=== PATIENT | female | born 1960 | race Two or more races ===

== ENCOUNTER → 2017-07-18 13:23 | Outpatient (CLI) | payer OTHER | END | disposition home or self-care (01) | LOC: LAB 13:23 | DX: J11.1 Influenza due to unidentified influenza virus with other respiratory manifestations (principal) ==

== ENCOUNTER → 2017-07-18 | Outpatient (CLI) | payer OTHER ==
[~2017-07-18] VITALS: Ht 152.4 cm; Wt 107.0 kg
[~2017-07-18] MED LIST: ALEVE220 M1 PO; ALLERGY EYE5 ML OP; BRONCOTRON-D S473 ML PO; CEFADROXIL500 MG PO; CIPRO500 MG; COZAAR100 MG; COZAAR100 MG PO; COZAAR25 MG PO; DIFLUCAN 100 MG PO; FLUCONAZOLE150 MG PO; GILTUSS TR TAB1 EACH PO; GLIPIZIDE10 MG; GLIPIZIDE10 MG PO; GLIPIZIDE5 MG/BOTT1 PO; GLUCOPHAGE XR500 MG PO; GLUCOPHAGE XR750 MG; GLUCOTROL10 MG; GLUCOTROL10 MG PO; LANTUS100 U/ML; LANTUS100 U/ML SC; LASIX20 MG PO; LEVAQUIN750 MG PO; LOTRISONE CREAM45 GM TP; METFORMIN HCL1000 M1 PO; NAPR500T14 PO; SYNTHROID175 MCG; SYNTHROID175 MCG PO; TOBREX5 ML OP; ULTRACET PO; ZOCOR20 MG; ZOCOR20 MG PO; ZYRTEC10 MG PO
== END | disposition home or self-care (01) ==
LOC: PPHC 10:10
DX: R09.81 Nasal congestion (principal); J11.1 Influenza due to unidentified influenza virus with other respiratory manifestations

== ENCOUNTER → 2017-10-01 16:41 | Outpatient (CLI) | payer OTHER | END | disposition home or self-care (01) | LOC: LAB 16:41 | DX: N39.0 Urinary tract infection, site not specified (principal); R82.79 Other abnormal findings on microbiological examination of urine ==

== ENCOUNTER → 2017-10-23 | Emergency (ER) | payer OTHER ==
[~2017-10-23] VITALS: Ht 162.6 cm; Wt 104.3 kg
== END | disposition home or self-care (01) ==
LOC: ER 08:02
DX: H10.89 Other conjunctivitis (principal)

== ENCOUNTER → 2017-10-30 06:06 | Outpatient (CLI) | payer OTHER | END | disposition home or self-care (01) | LOC: LAB 06:06 | DX: E78.5 Hyperlipidemia, unspecified (principal); E11.9 Type 2 diabetes mellitus without complications; E03.9 Hypothyroidism, unspecified; I10 Essential (primary) hypertension ==

== ENCOUNTER 2017-12-24 10:40 | Outpatient (CLI) | payer OTHER | END 2017-12-25 16:04 | disposition home or self-care (01) | LOC: LAB 10:40 | DX: Z11.3 Encounter for screening for infections with a predominantly sexual mode of transmission (principal) ==

== ENCOUNTER 2018-05-11 06:20 | Outpatient (CLI) | payer OTHER | END 2018-05-11 06:28 | disposition home or self-care (01) | LOC: LAB 06:20 | DX: E11.65 Type 2 diabetes mellitus with hyperglycemia (principal); E03.8 Other specified hypothyroidism; E78.2 Mixed hyperlipidemia ==

== ENCOUNTER 2018-05-18 07:44 | Emergency (ER) | payer OTHER ==
[~2018-05-18] VITALS: Ht 162.6 cm; Wt 106.6 kg
[2018-05-18] MEDS ORDERED: ZITHROMAX TRI-500 MG PO (10:44)
[2018-05-18] MEDS ORDERED: TUSNEL DIABETI118 ML PO (10:44)
== END 2018-05-18 10:47 | disposition home or self-care (01) ==
LOC: ER 07:44
DX: B34.9 Viral infection, unspecified (principal)

== ENCOUNTER 2018-08-24 07:18 | Outpatient (CLI) | payer OTHER ==
[~2018-08-24 07:18] MED LIST changes: +TUSNEL DIABETI118 ML PO; +ZITHROMAX TRI-500 MG PO
== END 2018-08-24 13:50 | disposition home or self-care (01) ==
LOC: LAB 07:18
DX: E03.8 Other specified hypothyroidism (principal); E11.65 Type 2 diabetes mellitus with hyperglycemia; E78.00 Pure hypercholesterolemia, unspecified

== ENCOUNTER 2018-09-03 11:05 | Emergency (ER) | payer OTHER ==
[~2018-09-03] VITALS: Ht 162.6 cm; Wt 104.3 kg
[2018-09-03] MEDS ORDERED: PROMETHAZINE W473 ML PO (15:32)
== END 2018-09-03 15:33 | disposition home or self-care (01) ==
LOC: ER 11:05
DX: J04.0 Acute laryngitis (principal); R53.1 Weakness; R49.0 Dysphonia

== ENCOUNTER 2018-09-23 13:18 | Outpatient (CLI) | payer OTHER ==
[~2018-09-23 13:18] MED LIST changes: +PROMETHAZINE W473 ML PO
== END 2018-09-23 13:20 | disposition home or self-care (01) ==
LOC: MAMO-SONO 13:18
DX: N64.4 Mastodynia (principal); Z12.31 Encounter for screening mammogram for malignant neoplasm of breast

== ENCOUNTER 2018-12-22 06:07 | Outpatient (CLI) | payer OTHER | END 2018-12-22 09:54 | disposition home or self-care (01) | LOC: LAB 06:07 | DX: E11.65 Type 2 diabetes mellitus with hyperglycemia (principal) ==

== ENCOUNTER → 2019-05-31 06:23 | Outpatient (CLI) | payer OTHER | END | disposition home or self-care (01) | LOC: LAB 06:23 | DX: E03.8 Other specified hypothyroidism (principal); E11.65 Type 2 diabetes mellitus with hyperglycemia; E78.00 Pure hypercholesterolemia, unspecified ==

== ENCOUNTER 2019-08-03 09:15 | Outpatient (CLI) | payer OTHER | END 2019-08-03 15:00 | disposition home or self-care (01) | LOC: LAB 09:15 | DX: J11.1 Influenza due to unidentified influenza virus with other respiratory manifestations (principal) ==

== ENCOUNTER 2020-02-10 10:04 | Outpatient (CLI) | payer OTHER | END 2020-02-10 10:24 | disposition home or self-care (01) | LOC: SONOGRAMA 10:04 | PROVIDERS: ATTEND Internal Medicine Cardiovascular Disease | DX: N63.10 Unspecified lump in the right breast, unspecified quadrant (principal); Z12.31 Encounter for screening mammogram for malignant neoplasm of breast ==

== ENCOUNTER 2020-06-13 09:06 | Outpatient (CLI) | payer OTHER ==
[~2020-06-13 09:06] MED LIST changes: +SKELAXIN800 MG PO
== END 2020-06-13 10:50 | disposition home or self-care (01) ==
LOC: PPH VACUNA 09:06
DX: Z23 Encounter for immunization (principal)

== ENCOUNTER → 2020-09-13 06:35 | Outpatient (CLI) | payer OTHER | END | disposition home or self-care (01) | LOC: LAB 06:35 | PROVIDERS: ATTEND Internal Medicine Cardiovascular Disease | DX: I10 Essential (primary) hypertension (principal); E11.9 Type 2 diabetes mellitus without complications; E03.8 Other specified hypothyroidism; E78.2 Mixed hyperlipidemia ==

== ENCOUNTER → 2020-09-14 | Outpatient (CLI) | payer OTHER | END | disposition home or self-care (01) | LOC: RAD 12:09 | PROVIDERS: ATTEND Internal Medicine Cardiovascular Disease | DX: M19.29 Secondary osteoarthritis, other specified site (principal); M46.47 Discitis, unspecified, lumbosacral region ==

== ENCOUNTER 2020-09-16 19:31 | Emergency (ER) | payer OTHER ==
[~2020-09-16] VITALS: Ht 152.4 cm; Wt 104.3 kg
== END 2020-09-16 21:35 | disposition home or self-care (01) ==
LOC: ER 19:31
DX: S60.411A Abrasion of left index finger, initial encounter (principal); W26.0XXA Contact with knife, initial encounter; Y93.89 Activity, other specified; Y92.098 Other place in other non-institutional residence as the place of occurrence of the external cause; Y99.8 Other external cause status

== ENCOUNTER 2020-12-18 07:49 | Emergency (ER) | payer OTHER ==
[~2020-12-18] VITALS: Ht 160 cm; Wt 104.3 kg
[2020-12-18] MEDS ORDERED: SIMVASTATIN10 MG (08:00)
[2020-12-18] MEDS ORDERED: COZAAR50 MG (08:00)
== END 2020-12-18 09:06 | disposition home or self-care (01) ==
LOC: ER 07:49
DX: H10.13 Acute atopic conjunctivitis, bilateral (principal)

== ENCOUNTER 2021-03-26 08:00 | Outpatient (CLI) | payer OTHER ==
[~2021-03-26 08:00] MED LIST changes: +COZAAR50 MG; +SIMVASTATIN10 MG
== END 2021-03-26 08:30 | disposition home or self-care (01) ==
LOC: PPH VACUNA 08:00
PROVIDERS: ATTEND Emergency Medicine Pediatric Emergency Medicine
DX: Z23 Encounter for immunization (principal)

== ENCOUNTER 2021-06-28 09:01 | Outpatient (CLI) | payer OTHER | END 2021-06-28 09:04 | disposition home or self-care (01) | LOC: LAB 09:01 | PROVIDERS: ATTEND General Practice | DX: Z20.828 Contact with and (suspected) exposure to other viral communicable diseases (principal) ==

== ENCOUNTER 2022-03-11 09:42 | Outpatient (CLI) | payer OTHER | END 2022-03-11 09:52 | disposition home or self-care (01) | LOC: PPH VACUNA 09:42 | PROVIDERS: ATTEND Emergency Medicine Pediatric Emergency Medicine | DX: Z23 Encounter for immunization (principal) ==

== ENCOUNTER 2022-03-20 08:07 | Outpatient (CLI) | payer OTHER | END 2022-03-20 08:12 | disposition home or self-care (01) | LOC: PPH VACUNA 08:07 | PROVIDERS: ATTEND Emergency Medicine Pediatric Emergency Medicine | DX: Z23 Encounter for immunization (principal) ==

== ENCOUNTER 2023-06-02 10:07 | Emergency (ER) | payer OTHER ==
[~2023-06-02] VITALS: Ht 162.6 cm; Wt 104.3 kg
[~2023-06-02 10:07] MED LIST changes: +KETO10TA2 PO; +NORFLEX100MG PO
[2023-06-02 10:53] LABS: HEMATOCRIT 33.9 % (36.0-45.00); HEMOGLOBIN 11.3 g/dL (12.0-15.00); MEAN CELL VOLUME 81.2 fL (80.00-100.00); MEAN CORPUSCULAR HEMOGLOBIN 27.1 pg (27.00-32.0); MEAN CORPUSCULAR HGB CONC 33.4 g/dl (32.0-36.0); PLATELET COUNT 195 K/uL (150-450); RED BLOOD COUNT 4.18 M/uL (4.00-6.00); RED CELL DISTRIBUTION WIDTH 14.6 % (11.5-14.5)
[2023-06-02] MEDS ORDERED: PAXLOVID 300-11 EACH PO (11:41)
== END 2023-06-02 13:27 | disposition home or self-care (01) ==
LOC: ER 10:08
PROVIDERS: General Practice
DX: U07.1 COVID-19 (principal)

== ENCOUNTER 2023-06-06 06:15 | Outpatient (CLI) | payer OTHER ==
[~2023-06-06 06:15] MED LIST changes: +PAXLOVID 300-11 EACH PO
[2023-06-06 07:21] LABS: HEMATOCRIT 37.2 % (36.0-45.00); HEMOGLOBIN 12.6 g/dL (12.0-15.00); MEAN CELL VOLUME 80.3 fL (80.00-100.00); MEAN CORPUSCULAR HEMOGLOBIN 27.2 pg (27.00-32.0); MEAN CORPUSCULAR HGB CONC 33.9 g/dl (32.0-36.0); PLATELET COUNT 235 K/uL (150-450); RED BLOOD COUNT 4.63 M/uL (4.00-6.00); RED CELL DISTRIBUTION WIDTH 15.4 % (11.5-14.5)
[2023-06-06 08:01] LABS: ALBUMIN 4.2 gm/dL (3.4-5.0); BILIRUBIN TOTAL 0.38 mg/dL (0.3-1.2); CALCIUM 9.9 mg/dL (8.5-10.1); CHOL HDL RATIO 3.6 (0-5.0); CREATININE SERUM 0.84 mg/dL (0.55-1.02); GFR 68.7; GLOBULINA 3.4 G/DL (2.4-3.5); TOTAL PROTEIN 7.6 gm/dL (6.4-8.2)
[2023-06-06 08:31] LABS: T4 FREE 1.15 NG/ML (0.76-1.46)
[2023-06-06 09:12] LABS: TSH 5.68 uIU/mL (0.358-3.74)
== END 2023-06-06 06:16 | disposition home or self-care (01) ==
LOC: LAB 06:15
PROVIDERS: ATTEND Internal Medicine Cardiovascular Disease
DX: E03.9 Hypothyroidism, unspecified (principal); E78.2 Mixed hyperlipidemia; E11.9 Type 2 diabetes mellitus without complications; I10 Essential (primary) hypertension

== ENCOUNTER 2023-09-19 07:43 | Outpatient (CLI) | payer OTHER | END 2023-09-19 07:47 | disposition home or self-care (01) | LOC: MAMO-SONO 07:43 | PROVIDERS: ATTEND Internal Medicine Cardiovascular Disease | DX: N60.11 Diffuse cystic mastopathy of right breast (principal); N60.12 Diffuse cystic mastopathy of left breast; Z12.31 Encounter for screening mammogram for malignant neoplasm of breast ==

== ENCOUNTER 2023-10-03 21:43 | Emergency (ER) | payer OTHER ==
[~2023-10-03] VITALS: Ht 160 cm; Wt 104.3 kg
[2023-10-03] MEDS ORDERED: RINGERS SOLUTION,LACTATED 1,000 ML IV STA (22:24)
[2023-10-03] MEDS ORDERED: INSULIN REGULAR, HUMAN 1,000 UNIT/10 ML UNITS SUBCUTANEO STA ×2 (22:25→22:47)
[2023-10-03] MEDS ORDERED: KETOROLAC TROMETHAMINE 30 MG VIAL IV STA (22:25)
[2023-10-03] MEDS ORDERED: PROMETHAZINE HCL 50 MG/ML AMPUL IM STA (22:26)
[2023-10-03] MEDS ORDERED: MEPERIDINE HCL/PF 50 MG/ML VIAL IM STA (22:26)
[2023-10-03 23:34] LABS: PH,URINE 5.5 (5.0-8.0); URINE APPEARANCE Clear; URINE BILIRRUBIN Negative (NEGATIVE); URINE BLOOD Large; URINE COLOR Yellow; URINE LEUKOCYTE Trace; URINE NITRATE Negative; URINE PROTEIN 30 (NEGATIVE); URINE UROBILINOGEN 0.2 E.U./dl
[2023-10-03 23:35] LABS: HEMATOCRIT 37.5 % (36.0-45.00); HEMOGLOBIN 12.5 g/dL (12.0-15.00); MEAN CELL VOLUME 79.2 fL (80.00-100.00); MEAN CORPUSCULAR HEMOGLOBIN 26.3 pg (27.00-32.0); MEAN CORPUSCULAR HGB CONC 33.2 g/dl (32.0-36.0); PLATELET COUNT 212 K/uL (150-450); RED BLOOD COUNT 4.74 M/uL (4.00-6.00); RED CELL DISTRIBUTION WIDTH 15.1 % (11.5-14.5)
[2023-10-03 23:38] LABS: URINE BACTERIA 2440.5 uL (0.0-1933); URINE EPITHELIAL CELLS 52.7 uL (0.0-38.8); URINE WBC 39.1 uL (0.0-23.2)
[2023-10-03 23:46] LABS: URINE GLUCOSE >=1000 MG/DL (NEGATIVE)
[2023-10-03 23:54] LABS: ALBUMIN 4.4 gm/dL (3.4-5.0); BILIRUBIN TOTAL 0.56 mg/dL (0.3-1.2); CALCIUM 9.9 mg/dL (8.5-10.1); CREATININE SERUM 1.27 mg/dL (0.55-1.02); GFR 42.64; GLOBULINA 3.2 G/DL (2.4-3.5); POTASSIUM 4.68 mEq/L (3.5-5.1); TOTAL PROTEIN 7.6 gm/dL (6.4-8.2)
== END 2023-10-04 01:57 | disposition home or self-care (01) ==
LOC: ER 21:43
DX: N20.1 Calculus of ureter (principal); E11.65 Type 2 diabetes mellitus with hyperglycemia; Z79.84 Long term (current) use of oral hypoglycemic drugs; I10 Essential (primary) hypertension

== ENCOUNTER 2023-10-12 08:56 | Emergency (ER) | payer OTHER ==
[~2023-10-12] VITALS: Ht 160 cm; Wt 104.3 kg
[2023-10-12] MEDS ORDERED: METFORMIN HCL1000 MG PO (09:14)
[2023-10-12] MEDS ORDERED: GUAIFENESIN 200 MG/10 ML BLIST.PACK PO ONE (09:45)
[2023-10-12] MEDS ORDERED: BENZONATATE 100 MG CAPSULE PO ONE (09:45)
[2023-10-12 10:18] LABS: HEMOGLOBIN 12.5 g/dL (12.0-15.00); MEAN CELL VOLUME 79.3 fL (80.00-100.00); MEAN CORPUSCULAR HEMOGLOBIN 26.8 pg (27.00-32.0); MEAN CORPUSCULAR HGB CONC 33.8 g/dl (32.0-36.0); PLATELET COUNT 192 K/uL (150-450); RED BLOOD COUNT 4.66 M/uL (4.00-6.00)
== END 2023-10-12 11:20 | disposition home or self-care (01) ==
LOC: ER 08:56
PROVIDERS: General Practice
DX: J06.9 Acute upper respiratory infection, unspecified (principal); R05.9 Cough, unspecified; Z20.822 Contact with and (suspected) exposure to COVID-19; I10 Essential (primary) hypertension; E11.9 Type 2 diabetes mellitus without complications; Z79.84 Long term (current) use of oral hypoglycemic drugs